=== PATIENT | male | born 1990 | race Hispanic/Latino ===

== ENCOUNTER → 2021-08-25 | Outpatient (REF) ==
--- NOTE | 2021-08-25 08:51 | REP ---
INDICATION: PAIN/SOB COMPARISON: None. TECHNIQUE: AP, lateral, bilateral oblique views right wrist. FINDINGS: The carpal bones, surrounding osseous structures, soft tissues, and joint spaces are normal. There is no evidence for acute fracture or dislocation. No subcutaneous emphysema or radiodense foreign body. IMPRESSION: Normal wrist series. No acute fracture or dislocation. <Electronically signed by Steven Levy > 08/25/21 0845
--- NOTE | 2021-08-25 08:51 | REP ---
INDICATION: PAIN/SOB COMPARISON: None. TECHNIQUE: PA and lateral. FINDINGS: The mediastinum and cardiac silhouette are normal. The lung hernandez are clear and without acute consolidation, effusion, or pneumothorax. The skeletal structures are intact and normal. IMPRESSION: No acute cardiopulmonary process. <Electronically signed by Steven Levy > 08/25/21 0809
--- NOTE | 2021-08-25 08:52 | REP ---
INDICATION: PAIN/SOB COMPARISON: None. TECHNIQUE: AP, lateral, coned-down views of the lumbar spine. FINDINGS: Three views of the lumbosacral spine demonstrate satisfactory alignment and lordosis without acute fracture / compression injury or subluxation. There is focal endplate sclerosis and marginal spurring at the L3-4 level with normal maintained disc space. IMPRESSION: 1. No acute fracture / compression injury or subluxation. 2. Minimal degenerative changes suggested at L3-4.. <Electronically signed by Steven Levy > 08/25/21 0805
== END ==
LOC: M PLAIMG 08:12
PROVIDERS: ATTEND Internal Medicine
DX: R06.02 Shortness of breath (principal)